=== PATIENT | male | born 1990 | race African-American/Black ===

== ENCOUNTER → 2016-12-31 | Outpatient (CLI) | payer OTHER ==
[2016-12-31] VITALS (8 sets, daily range): BP systolic 121–150; BP diastolic 62–92
[~2016-12-31] VITALS: Ht 167.6 cm; Wt 76.7 kg
[~2016-12-31] MED LIST: CALC0.25 PO; CLOP75TA PO; HEPARIN for IV BOLUS 10,000 UNIT/10 ML VIAL. ONE; LIDOCAINE 1%/EPI 1:100,000 20 ML VIAL. INJ ONE; LIDOCAINE 1%/EPI 1:100,000 20 ML VIAL. ONE; MIDAZOLAM HCL/PF 5 MG/5 ML VIAL. IV ONE; MIDAZOLAM HCL/PF 5 MG/5 ML VIAL. ONE; SEVE800T9 PO; VANCOMYCIN 1GM IVPB FOR OMNI 250 ML IRR ONE; VITA0.8T2 PO; fentaNYL PF VIAL 250 MCG/5 ML VIAL IV ONE; fentaNYL PF VIAL 250 MCG/5 ML VIAL ONE
[2016-12-31 09:54] LABS: BASO # 0.1 x10^3/uL (0.0-0.2); BASO % 1 % (0-3); EOS % 3 % (0-3); HEMATOCRIT 30.5 % (39.0-53.0); HEMOGLOBIN 10.4 g/dL (13.0-17.5); LYMPH # 1.8 x10^3/uL (1.0-4.8); LYMPH % 26 % (24-48); MEAN CORPUSCULAR HEMOGLOBIN 33 pg (25-35); MEAN CORPUSCULAR HGB CONC 34 g/dL (31-37); MEAN CORPUSCULAR VOLUME 97 fL (79-100); MONO % 9 % (0-9); NEUT % 61 % (31-73); PLATELET COUNT 246 x10^3/uL (140-400); RED BLOOD COUNT 3.15 x10^6/uL (4.30-5.70); RED CELL DISTRIBUTION WIDTH 14.3 % (11.5-14.5); WHITE BLOOD COUNT 6.9 x10^3/uL (4.0-11.0)
--- NOTE | 2016-12-31 10:59 | PDOC ---
MODERATE SEDATION ASSESSMENT RISKS/ALTERNATIVES Risks/Alternatives Risks and alternatives of this type of sedation and procedure discussed with: RISK/ALTERNATIVES: Patient H & P ON CHART H & P H & P on chart and reviewed for co-morbid conditions and appropriate labs. H&P ON CHART: Yes STATUS PREG STATUS ASSESSED: N/A MEDS/ALLERGIES REVIEWED Meds/Allergies Reviewed Medications and Allergies including time and route of recently administered narcotics and sedatives. MEDS/ALLERGIES REVIEWED: Yes ASA RATING ASA RATING: II AIRWAY ASSESSMENT Airway Assessment Airway patency, oral function limitations, presence of caps, crowns, dentures, partials, and ability to extend neck assessed. AIRWAY ASSESSMENT: Yes MALLAMPATI SCORE MALLAMPATI SCORE: I PRE-SEDATION ASSESSMENT PRE-SEDATION ASSESSMENT: Yes JAZMÍN STILL MD Dec 31, 2016 10:59
--- NOTE | 2016-12-31 11:04 | PDOC1 ---
History and Physical Date of Procedure Date of Admission 12/31/16 Procedure Procedure Sono/fluoro guided tunneled HDC insertion Indication Indication 26 YO male with ESRD and nonfunctioning AV access. Tunneled HDC insertion has been requested by Renal. Past Medical History Past Medical History See Nursing Pre Procedure PMH Past Surgical History Past Surgical History See Nursing Pre procedure PSH Current Medications Current Medications Current Medications Heparin Sodium (Porcine) (Heparin Sodium) 10,000 unit STK-MED ONCE .ROUTE ; Start 12/31/16 at 10:03; Stop 12/31/16 at 10:04; Status DC Lidocaine/ Epinephrine (Xylocaine 1%-Epi 1:100,000) 20 ml STK-MED ONCE .ROUTE ; Start 12/31/16 at 10:03; Stop 12/31/16 at 10:04; Status DC Heparin Sodium/ Sodium Chloride 500 ml @ As Directed STK-MED ONCE .ROUTE ; Start 12/31/16 at 10:03; Stop 12/31/16 at 10:04; Status DC Midazolam HCl (Versed) 5 mg STK-MED ONCE .ROUTE ; Start 12/31/16 at 10:16; Stop 12/31/16 at 10:17; Status DC Fentanyl Citrate (Fentanyl 5ml Vial) 250 mcg STK-MED ONCE .ROUTE ; Start at 10:16; Stop 12/31/16 at 10:17; Status DC Cefazolin Sodium 50 ml @ As Directed STK-MED ONCE IV ; Start 12/31/16 at 10:16; Stop 12/31/16 at 10:17; Status DC Heparin Sodium/ Sodium Chloride 1,000 unit 1X ONCE IART ; Start 12/31/16 at 10: 45; Stop 12/31/16 at 10:48; Status DC Midazolam HCl (Versed) 5 mg 1X ONCE IV ; Start 12/31/16 at 10:45; Stop at 10:48; Status DC Fentanyl Citrate (Fentanyl 5ml Vial) 150 mcg 1X ONCE IV ; Start 12/31/16 at 10: 45; Stop 12/31/16 at 10:48; Status DC Cefazolin Sodium 50 ml @ 100 mls/hr 1X ONCE IV ; Start 12/31/16 at 10:45; Stop 12/31/16 at 11:14 Vancomycin HCl 250 ml @ 250 mls/hr 1X ONCE IRR ; Start 12/31/16 at 10:45; Stop 12/31/16 at 11:44; Status Cancel Heparin Sodium (Porcine) (Heparin Sodium) 4,000 unit 1X ONCE INT CAT ; Start at 10:45; Stop 12/31/16 at 10:48; Status DC Lidocaine/ Epinephrine (Xylocaine 1%-Epi 1:100,000) 20 ml 1X ONCE INJ ; Start 12/31/16 at 10:45; Stop 12/31/16 at 10:48; Status DC Active Scripts Active Reported Clopidogrel (Clopidogrel Bisulfate) 75 Mg Tablet 1 Tab PO DAILY Renvela (Sevelamer Carbonate) 800 Mg Tablet 800 Mg PO TIDWMEALS Calcitriol 0.25 Mcg Capsule 1 Cap PO DAILY Dialyvite 800-Zinc 50 mg Tab (Vit B Complx C/Folic Acid/Zinc) 1 Each Tablet 1 Each PO DAILY Allergies Allergies: Coded Allergies: No Known Drug Allergies (Unverified , 12/31/16) Physical Exam Vital Signs Vital Signs Date Time Temp Pulse Resp B/P (MAP) Pulse Ox O2 Delivery O2 Flow Rate FiO2 12/31/16 10:54 84 17 99 Nasal Cannula 2.0 12/31/16 10:00 98.4 121/76 (91) 98.4 Lungs: Clear to auscultation Heart: Regular rate Psych/Mental Status: Mental status NL Vascular Thrombosed AV access Assessment Assessment 26 YO male with ESRD and nonfunctioning AV access. Problems: Plan Plan Sono/fluoro guided tunneled HDC insertion JAZMÍN STILL MD Dec 31, 2016 11:04
--- NOTE | 2016-12-31 11:07 | PDOC ---
Exam Offset Press Operator Apprentice Offset Press Operator Apprentice Sabino Crabber Crabber F Ndumbu Pre-Procedure Diagnosis Pre-Procedure Diagnosis 26 YO male with ESRD and nonfunctioning AV access Post-Procedure Diagnosis Post-Procedure Diagnosis Same Procedure Performed Procedure Performed Sono/fluoro guided tunneled HDC insertion Type of Anesthesia Type of Anesthesia Local + Mod sedation Estimated Blood Loss EBL: Minimal Drain/Tubes Drains/Tubes Right IJ 15.5F 24cm DuraMax tunneled HDC Condition of Patient Condition of Patient Stable. No apparent complication. Disposition Disposition Discharge from OBS post recovery, if no problems. F/u with Renal. OK to use tunneled HDC. Full report to follow. JAZMÍN STILL MD Dec 31, 2016 11:07
--- NOTE | 2017-01-01 10:53 | RAD ---
Ultrasound and fluoro guided placement of right IJ tunneled hemodialysis catheter Indication: 26-year-old male with end stage renal disease, and with thrombosed/nonfunctioning AV access. He needs hemodialysis. Tunneled dialysis catheter insertion has been requested by renal. Fluoro time: 1.4 minutes Kerma-Area Product: 3 Gycm2 Moderate sedation: 31 minutes moderate sedation was provided utilizing a total of 3 mg Versed and 150 mcg fentanyl, IV. The patient was appropriately monitored by a qualified independent observer throughout the time of moderate sedation. Antibiotic: A single dose of Ancef was administered within 1 hour of the procedure start time. Sterility: All elements of maximal sterile barrier technique, hand hygiene, skin preparation, and, if ultrasound was used, sterile ultrasound technique were followed. Consent: The procedure was explained in its entirety to the patient and/or the patient's designated help desk representative by a member of the treatment team. This included a discussion of risks and benefits and commonly accepted alternatives to the procedure, as well as expected consequences of no treatment at all. Discussion of risks included, but was not limited to, those that are most frequent and those that are rare, but possibly severe or life-threatening, as well as the possibility of unforeseen complications. Procedure: Informed consent was obtained from the patient. He was placed supine on the angiography table. Preliminary ultrasound examination of right neck revealed wide patency of right internal jugular vein, which was documented with a hard copy ultrasound image. Right neck and upper chest were then prepped and draped in the usual sterile fashion, utilizing all elements of maximal sterile barrier technique, as described above. Moderate sedation was provided with IV Versed and Fentanyl. 1 gram Ancef was given IV, prophylactically. Using aseptic technique and local anesthesia, a small skin incision was made lateral to right internal jugular vein, just above clavicle. Using aseptic technique, local anesthesia, and direct sterile ultrasound guidance, a micropuncture needle was successfully introduced into right internal jugular vein. The micropuncture needle was then exchanged over a microguidewire for a micropuncture sheath, through which an Amplatz wire was advanced into IVC, under fluoroscopic control. A second small skin incision was then made along upper anterior aspect of right chest. A subcutaneous tunnel was then fashioned between the right chest and supraclavicular incisions. A 15.5 F 24 cm Dura Max dialysis catheter was pulled through the subcutaneous tunnel from inferior to superior, utilizing the tunneling device provided. The right IJ venostomy tract was then sequentially dilated and the 15.5 Bengali dialysis catheter was easily advanced centrally through a 16 Bengali peel-away sheath, and was positioned with its tip at the level of upper right atrium utilizing fluoroscopic guidance. This catheter was demonstrated to flush and aspirate normally, was packed, and was secured at the right chest exit site utilizing 2-0 Prolene and sterile dressing. The small supraclavicular incision was closed with 4-0 Vicryl, Steri-Strips, and sterile dressing. Patient tolerated the procedure well without apparent complication. Satisfactory position of the dialysis catheter was confirmed with a single fluoroscopic spot image. Impression: Successful, uneventful ultrasound and fluoro guided placement of right IJ 15.5 F 24 cm Dura Max tunneled hemodialysis catheter, as described.
== END | disposition home or self-care (01) ==
LOC: INTRAD 09:13
PROVIDERS: ATTEND Internal Medicine Nephrology
DX: T82.868A Thrombosis due to vascular prosthetic devices, implants and grafts, initial encounter (principal); Y84.8 Other medical procedures as the cause of abnormal reaction of the patient, or of later complication, without mention of misadventure at the time of the procedure; N18.6 End stage renal disease; F17.200 Nicotine dependence, unspecified, uncomplicated; Z72.0 Tobacco use; Z90.49 Acquired absence of other specified parts of digestive tract
CPT/HCPCS: 36415; 36558; 76937; 77001; 85027; 85610; 99152; 99153; C1750; C1769; C1892; J0690; J2250; J3010; J3490

== ENCOUNTER 2017-02-02 21:28 | Inpatient (IN) | payer SELFPAY ==
[~2017-02-02] VITALS: Ht 167.6 cm; Wt 73.1 kg
[~2017-02-02 21:28] MED LIST changes: -HEPARIN for IV BOLUS 10,000 UNIT/10 ML VIAL. ONE; -LIDOCAINE 1%/EPI 1:100,000 20 ML VIAL. INJ ONE; -LIDOCAINE 1%/EPI 1:100,000 20 ML VIAL. ONE; -MIDAZOLAM HCL/PF 5 MG/5 ML VIAL. IV ONE; -MIDAZOLAM HCL/PF 5 MG/5 ML VIAL. ONE; -VANCOMYCIN 1GM IVPB FOR OMNI 250 ML IRR ONE; -fentaNYL PF VIAL 250 MCG/5 ML VIAL IV ONE; -fentaNYL PF VIAL 250 MCG/5 ML VIAL ONE
[2017-02-02 21:56] LABS: BASO # 0.1 x10^3/uL (0.0-0.2); BASO % 1 % (0-3); EOS % 3 % (0-3); HEMATOCRIT 38.9 % (39.0-53.0); HEMOGLOBIN 13.3 g/dL (13.0-17.5); LYMPH # 3.8 x10^3/uL (1.0-4.8); LYMPH % 36 % (24-48); MEAN CORPUSCULAR HEMOGLOBIN 34 pg (25-35); MEAN CORPUSCULAR HGB CONC 34 g/dL (31-37); MEAN CORPUSCULAR VOLUME 98 fL (79-100); MONO % 9 % (0-9); NEUT % 51 % (31-73); PLATELET COUNT 257 x10^3/uL (140-400); RED BLOOD COUNT 3.99 x10^6/uL (4.30-5.70); RED CELL DISTRIBUTION WIDTH 14.4 % (11.5-14.5); WHITE BLOOD COUNT 10.6 x10^3/uL (4.0-11.0)
[2017-02-02] MEDS: fentaNYL PF VIAL 100 MCG/2 ML VIAL IV PRN ×3 (21:58→23:31)
[2017-02-02 22:05] LABS: INR 1.1 (0.8-1.1); PROTHROMBIN TIME PATIENT 13.1 SEC (11.7-14.0)
--- NOTE | 2017-02-02 22:52 | PHYS DOC ---
Past Medical History Past Medical History: Renal Failure Past Surgical History: Cholecystectomy, Other Additional Past Surgical Histo: FISTULA L. ARM Alcohol Use: None Drug Use: None Adult General Chief Complaint Chief Complaint: DIALYSIS PROBLEM HPI HPI Patient is a 26 year old male dialysis patient who presents with a problem with his tunneled dialysis catheter. Patient does at home hemodialysis 5 days a week. He had a fistula in his left arm that is not functioning. About a month ago, he had a tunneled catheter placed in his right subclavian. He was using that without difficulty. 2 days ago, it became painful and yesterday it became swollen in this area. It hurts to take a deep breath or move his head or cough. He does not feel short of breath. Denies fever or chills. Denies cough of any significance. He did not do dialysis yesterday because it was painful, he didn't do today because he went to see his distribution a class lineman in the distribution a class lineman told him to come here for evaluation. Review of Systems Review of Systems Constitutional: Denies fever or chills [] Eyes: Denies change in visual acuity, redness, or eye pain [] HENT: Denies nasal congestion or sore throat [] Respiratory: Denies cough or shortness of breath [] Cardiovascular: No cardiac sounding chest pain GI: Denies abdominal pain, nausea, vomiting, bloody stools or diarrhea [] : Denies dysuria or hematuria [] Musculoskeletal: Denies back pain or joint pain [] Integument: Denies rash or skin lesions [] Neurologic: Denies headache, focal weakness or sensory changes [] Current Medications Current Medications Current Medications Medications (Trade) Dose Ordered Sig/[facility] Start Time Stop Time Status Last Admin Dose Admin Fentanyl Citrate (Fentanyl 2ml Vial) 50 mcg PRN Q15MIN PRN 02/02/17 22:00 02/03/17 21:59 02/02/17 23:31 50 MCG Allergies Allergies Allergies Coded Allergies Type Severity Reaction Last Updated Verified No Known Drug Allergies 01/20/17 No Physical Exam Physical Exam Constitutional: Well developed, well nourished, no acute distress, non-toxic appearance. Alert, ambulatory, mentating normally. HENT: Normocephalic, atraumatic, bilateral external ears normal, nose normal. [] Eyes: conjunctiva normal, no discharge. [] Neck: Normal range of motion, no stridor. [] Cardiovascular:Heart rate regular rhythm, no murmur Chest wall: A tunneled dialysis catheter is in place in the right upper chest wall. There is mild tenderness surrounding and superior to the catheter entry. No redness, no warmth, no crepitance. Lungs & Thorax: Bilateral breath sounds clear to auscultation [] Skin: Warm, dry, no erythema, no rash. [] Extremities: No tenderness, no cyanosis, no clubbing, ROM intact, no edema. Right arm is not appreciably swollen, not warm, not red, good pulses. Neurologic: Alert and oriented X 3, normal motor function, normal sensory function, no focal deficits noted. [] Current Patient Data Vital Signs Vital Signs Date Time Temp Pulse Resp B/P (MAP) Pulse Ox O2 Delivery O2 Flow Rate FiO2 02/02/17 23:31 20 02/02/17 21:45 98.2 76 166/109 (128) 97 Room Air 98.2 Lab Values Laboratory Tests Test 02/02/17 21:46 White Blood Count 10.6 x10^3/uL (4.0-11.0) Red Blood Count 3.99 x10^6/uL (4.30-5.70) L Hemoglobin 13.3 g/dL (13.0-17.5) Hematocrit 38.9 % (39.0-53.0) L Mean Corpuscular Volume 98 fL (79-100) Mean Corpuscular Hemoglobin 34 pg (25-35) Mean Corpuscular Hemoglobin Concent 34 g/dL (31-37) Red Cell Distribution Width 14.4 % (11.5-14.5) Platelet Count 257 x10^3/uL (140-400) Neutrophils (%) (Auto) 51 % (31-73) Lymphocytes (%) (Auto) 36 % (24-48) Monocytes (%) (Auto) 9 % (0-9) Eosinophils (%) (Auto) 3 % (0-3) Basophils (%) (Auto) 1 % (0-3) Neutrophils # (Auto) 5.4 x10^3uL (1.8-7.7) Lymphocytes # (Auto) 3.8 x10^3/uL (1.0-4.8) Monocytes # (Auto) 0.9 x10^3/uL (0.0-1.1) Eosinophils # (Auto) 0.3 x10^3/uL (0.0-0.7) Basophils # (Auto) 0.1 x10^3/uL (0.0-0.2) Prothrombin Time 13.1 SEC (11.7-14.0) Prothrombin Time INR 1.1 (0.8-1.1) PTT 33 SEC (24-38) Laboratory Tests 02/02/17 21:46 EKG EKG [] Radiology/Procedures Radiology/Procedures One view portable chest x-ray read by me. Heart size is normal. Lung hernandez are clear. The tunneled right subclavian catheter is noted. No pulmonary infiltrate , effusion, or pneumothorax. [] Course & Med Decision Making Course & Med Decision Making Pertinent Labs and Imaging studies reviewed. (See chart for details) 26-year-old male with a tunneled right subclavian dialysis catheter presents with concern for pain and swelling in the area. I discussed the case with radiologist , and he recommended ultrasound of the right upper extremity which will image the concerning area well he stated. I ordered that test. Vascular Doppler of the right upper extremity/subclavian area was done by the settlement technician. It is positive for clot in the right internal jugular and the right proximal subclavian. As the subclavian moves more distal out into the right axillary area, it is open without clot. I discussed the findings with Dr. Kingsley, on-call for nephrology. He recommended admitting the patient for IV heparin therapy. He prefers IV heparin over Lovenox. I discussed the case with Dr. Starks, hospital medicine. She will admit the patient. I wrote bridge orders. [] Dragon Disclaimer Dragon Disclaimer This electronic medical record was generated, in whole or in part, using a voice recognition dictation system. 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
[2017-02-02 23:44] LABS: ALBUMIN 3.2 g/dL (3.4-5.0); ALBUMIN/GLOBULIN RATIO 0.9 (1.0-1.7); CALCIUM 8.9 mg/dL (8.5-10.1); CREATININE 7.7 mg/dL (0.7-1.3); GFR 10.3; TOTAL BILIRUBIN 0.4 mg/dL (0.2-1.0); TOTAL PROTEIN 6.9 g/dL (6.4-8.2)
[2017-02-03] VITALS (7 sets, daily range): BP systolic 136–166; BP diastolic 80–111
[2017-02-03] MEDS ORDERED: HEPARIN for IV BOLUS 10,000 UNIT/10 ML VIAL. IV PRN ×2
[2017-02-03] MEDS ORDERED: WARFARIN 7.5 MG TABLET. PO ONE ×2 (00:15→16:00)
[2017-02-03] MEDS: HEPARIN 25,000UTS/500ML PREMIX 500 ML IV PRN ×2 (00:18→20:07)
--- NOTE | 2017-02-03 00:19 | RAD ---
Right upper Extremity Venous Doppler Ultrasound History: Right neck and shoulder pain for 2 days with right upper extremity swelling for one day, patient has an infraclavicular dialysis catheter. Comparison: None Procedure: Color flow, duplex, spectral analysis and 2D images are obtained with and without compression in the area of the deep and superficial venous structures of the upper , specifically the axillary, brachials, radial and ulnar deep veins and the superficial basilic and cephalic veins. Color Doppler and venous waveform analysis was also applied to the left jugular and subclavian vein. Findings: There is clot seen in the right internal jugular vein and the proximal right subclavian vein. The mid subclavian vein is not well visualized due to a port and bandage. The deep venous system right upper extremity is patent. Impression: Study is positive for deep venous thrombosis involving the proximal right subclavian vein and the right jugular vein. In this clinical presentation this is suspicious for thrombophlebitis. Electronically signed by: Ian Sterling III, MD (02/03/2017 12:16 AM) [facility]
[2017-02-03] MEDS ORDERED: HEPARIN for IV BOLUS 10,000 UNIT/10 ML VIAL. IV ONE (00:30)
[2017-02-03] MEDS: fentaNYL PF VIAL 100 MCG/2 ML VIAL IV PRN ×5 (03:20→20:11)
[2017-02-03] MEDS ORDERED: ANTI-COAG MONITOR BY PHARMACY. MC PRN (04:15)
[2017-02-03 08:12] LABS: CALCIUM 8.7 mg/dL (8.5-10.1); CREATININE 7.8 mg/dL (0.7-1.3); GFR 10.1; POTASSIUM 3.3 mmol/L (3.5-5.1)
--- NOTE | 2017-02-03 08:14 | RAD ---
Indication pain. A single view of the chest was obtained. Comparison is made to an examination 04/10/2013. The heart and pulmonary vessels appear normal. The lungs are clear of acute infiltrates. Significant pleural fluid is not seen. There is no pneumothorax. A right-sided dialysis catheter is noted. IMPRESSION: No acute or focal process seen in chest
--- NOTE | 2017-02-03 08:59 | PDOC2 ---
CONSULT Date of Consult Date of Consult DATE: 02/03/17 TIME: 08:57 Reason for Consult Reason for Consult: ESRD Referring Physician Referring Physician: Dr Starks Identification/Chief Complaint Chief Complaint neck pain Problems: Source Source: Patient History of Present Illness Reason for Visit: 26 yo AAM with ESRD for > 1yr currently doing home HD developed neck pain, found to have DVT via ER. He had permacath placment here ~ 1m ago. ESRD duet o "Kidney Dz" (IgAN) HypoKalemia - despite no HD since Tuesday due to pain Neck pain - with swelling on Rt, Presumably due to new onset DVT. N oissues with Cath working on last check. min dec ROM - some warmth Past Medical History GI: Other (cholecystectomy) Renal/: Chronic renal failure, Other (ESRD) Family History Family History: Other (-ve for renal dz) Social History ALCOHOL: none Drugs: None Lives: with Family Current Problem List Problem List Problems Medical Problems: (1) Chronic renal failure Status: Acute (2) Internal jugular vein thrombosis Status: Acute (3) Subclavian vein thrombosis Status: Acute Current Medications Current Medications Current Medications Fentanyl Citrate (Fentanyl 2ml Vial) 50 mcg PRN Q15MIN PRN IV PAIN GREATER THAN 3/10 Last administered on 02/02/17 23:31; Start 02/02/17 at 22:00; Stop at 05:00; Status DC Fentanyl Citrate (Fentanyl 2ml Vial) 50 mcg PRN Q2HR PRN IV SEVERE PAIN Last administered on 02/03/17 06:30; Start 02/03/17 at 00:00; Stop 02/03/17 at 23:59 Heparin Sodium/ Dextrose 500 ml @ 0 mls/hr CONT PRN IV SEE I/O RECORD Last administered on 02/03/17 00:18; Start 02/03/17 at 00:00 Heparin Sodium (Porcine) (Heparin Sodium) 2,300 unit PRN Q6HRS PRN IV FOR UFH LEVEL LESS THAN 0.2; Start 02/03/17 at 00:00 Heparin Sodium (Porcine) (Heparin Sodium) 1,150 unit PRN Q6HRS PRN IV FOR UFH LEVEL 0.2 - 0.29 Last administered on 02/03/17 08:16; Start 02/03/17 at 00:00 Warfarin Sodium (Coumadin Per Pharmacy) 1 each PRN DAILY PRN MC PER PROTOCOL Last administered on 02/03/17 05:50; Start 02/03/17 at 00:00 Warfarin Sodium (Coumadin) 7.5 mg 1X ONCE PO ; Start 02/03/17 at 00:15; Stop at 00:15; Status DC Heparin Sodium (Porcine) (Heparin Sodium) 6,150 unit 1X ONCE IV Last administered on 02/03/17 00:16; Start 02/03/17 at 00:30; Stop 02/03/17 at 00:31 ; Status DC Info (Anti-Coagulation Monitoring By Pharmacy) 1 each PRN DAILY PRN MC SEE COMMENTS Last administered on 02/03/17 05:53; Start 02/03/17 at 04:15 Active Scripts Active Reported Clopidogrel (Clopidogrel Bisulfate) 75 Mg Tablet 1 Tab PO DAILY Renvela (Sevelamer Carbonate) 800 Mg Tablet 800 Mg PO TIDWMEALS Calcitriol 0.25 Mcg Capsule 1 Cap PO DAILY Dialyvite 800-Zinc 50 mg Tab (Vit B Complx C/Folic Acid/Zinc) 1 Each Tablet 1 Each PO DAILY Allergies Allergies: Coded Allergies: No Known Drug Allergies (Unverified , 01/20/17) ROS Review of System GEN: no Fevers no Chills EYES: no new Visual Complaints ENT: no EN Drainage no Hearing deficiets CVS: no Orthopnea no CP RESP: no SOB no TORRES GI: no Nausea no Vomiting : no Dysuria no Urgency HEME: no easy bruising no Palp Ly Nodes NEURO no Focal Weakness no Sz PSYCH: no Suicidal Ideation no Depression SKIN: no Rashes ENDO: no Polyuria or Polydipsia no Hot/Cold Intolerance MU SK: no Arthraigia no Myalgia Physical Exam Physical Exam General Appearance: Awake Alert Oriented x 3 In no Distress Eyes: VIsion Unchanged Conjunctiva Normal EN: No EN Drainage Mucous Memb. moist Neck: no JVD min JVP Supple no Thyromegaly; swelling on Rt side of neck , min warm to touch, TTP CVS: S1 S2 ? Murmur No Gallop No Rub no Edema Resp: no Rales no Rhonchi no Acc. Muscle use GI: BAS +ve NO Bruit Non Tender Non Distended : no CVA tenderness; no Suprapubic Tenderness SKIN: no Rashes Breast Exam deferred Mu.Sk: Adequate ROM no Muscle Atrophy Heme: Unable to palpate Obvious LAD no palp Splenomegaly NEURO: Good Strength and Tone Cranial Nerves II - XII grossly intact Psych: no Depressed no Active hallucination Vital Signs Vital Signs Date Time Temp Pulse Resp B/P (MAP) Pulse Ox O2 Delivery O2 Flow Rate FiO2 02/03/17 07:00 99.0 67 20 140/80 (100) 96 Room Air 99.0 Assessment & Plan ESRD: Dialysis as below F 180 NR 2.5 Hrs 4 K 2.5 Ca 140 Na 30 HC03 Qb 350 + Qd 500+ Heparin on gtt Uf to dry weight as tolerated May give 25-50 gms of 25% Albumin if needed to maintain Hemodynamic stability Treatment plan reviewed and discussed with shipping point inspector [place] - anticipate correction with HD Bone & Mineral: follow phos and alter binder regimen as needed. Discussed Plan of Care and prognosis etc. at length with pt and Dr Yañez Labs Labs Laboratory Tests Test 02/02/17 21:46 02/02/17 23:00 02/03/17 06:10 White Blood Count 10.6 x10^3/uL (4.0-11.0) Red Blood Count 3.99 x10^6/uL (4.30-5.70) Hemoglobin 13.3 g/dL (13.0-17.5) Hematocrit 38.9 % (39.0-53.0) Mean Corpuscular Volume 98 fL (79-100) Mean Corpuscular Hemoglobin 34 pg (25-35) Mean Corpuscular Hemoglobin Concent 34 g/dL (31-37) Red Cell Distribution Width 14.4 % (11.5-14.5) Platelet Count 257 x10^3/uL (140-400) Neutrophils (%) (Auto) 51 % (31-73) Lymphocytes (%) (Auto) 36 % (24-48) Monocytes (%) (Auto) 9 % (0-9) Eosinophils (%) (Auto) 3 % (0-3) Basophils (%) (Auto) 1 % (0-3) Neutrophils # (Auto) 5.4 x10^3uL (1.8-7.7) Lymphocytes # (Auto) 3.8 x10^3/uL (1.0-4.8) Monocytes # (Auto) 0.9 x10^3/uL (0.0-1.1) Eosinophils # (Auto) 0.3 x10^3/uL (0.0-0.7) Basophils # (Auto) 0.1 x10^3/uL (0.0-0.2) Prothrombin Time 13.1 SEC (11.7-14.0) Prothromb Time International Ratio 1.1 (0.8-1.1) Activated Partial Thromboplast Time 33 SEC (24-38) Sodium Level 139 mmol/L (136-145) 141 mmol/L (136-145) Potassium Level 3.0 mmol/L (3.5-5.1) 3.3 mmol/L (3.5-5.1) Chloride Level 100 mmol/L (98-107) 102 mmol/L (98-107) Carbon Dioxide Level 29 mmol/L (21-32) 28 mmol/L (21-32) Anion Gap 10 (6-14) 11 (6-14) Blood Urea Nitrogen 34 mg/dL (8-26) 38 mg/dL (8-26) Creatinine 7.7 mg/dL (0.7-1.3) 7.8 mg/dL (0.7-1.3) Estimated GFR (Cockcroft-Gault) 10.3 10.1 BUN/Creatinine Ratio 4 (6-20) Glucose Level 86 mg/dL (70-99) 125 mg/dL (70-99) Calcium Level 8.9 mg/dL (8.5-10.1) 8.7 mg/dL (8.5-10.1) Total Bilirubin 0.4 mg/dL (0.2-1.0) Aspartate Amino Transf (AST/SGOT) 18 U/L (15-37) Alanine Aminotransferase (ALT/SGPT) 29 U/L (16-63) Alkaline Phosphatase 101 U/L (46-116) Total Protein 6.9 g/dL (6.4-8.2) Albumin 3.2 g/dL (3.4-5.0) Albumin/Globulin Ratio 0.9 (1.0-1.7) Heparin Anti-Xa Act, Unfractionated 0.29 IU/mL (0.30-0.70) Magnesium Level 2.0 mg/dL (1.8-2.4) Laboratory Tests Test 02/02/17 21:46 02/02/17 23:00 02/03/17 06:10 White Blood Count 10.6 x10^3/uL (4.0-11.0) Red Blood Count 3.99 x10^6/uL (4.30-5.70) Hemoglobin 13.3 g/dL (13.0-17.5) Hematocrit 38.9 % (39.0-53.0) Mean Corpuscular Volume 98 fL (79-100) Mean Corpuscular Hemoglobin 34 pg (25-35) Mean Corpuscular Hemoglobin Concent 34 g/dL (31-37) Red Cell Distribution Width 14.4 % (11.5-14.5) Platelet Count 257 x10^3/uL (140-400) Neutrophils (%) (Auto) 51 % (31-73) Lymphocytes (%) (Auto) 36 % (24-48) Monocytes (%) (Auto) 9 % (0-9) Eosinophils (%) (Auto) 3 % (0-3) Basophils (%) (Auto) 1 % (0-3) Neutrophils # (Auto) 5.4 x10^3uL (1.8-7.7) Lymphocytes # (Auto) 3.8 x10^3/uL (1.0-4.8) Monocytes # (Auto) 0.9 x10^3/uL (0.0-1.1) Eosinophils # (Auto) 0.3 x10^3/uL (0.0-0.7) Basophils # (Auto) 0.1 x10^3/uL (0.0-0.2) Prothrombin Time 13.1 SEC (11.7-14.0) Prothromb Time International Ratio 1.1 (0.8-1.1) Activated Partial Thromboplast Time 33 SEC (24-38) Sodium Level 139 mmol/L (136-145) 141 mmol/L (136-145) Potassium Level 3.0 mmol/L (3.5-5.1) 3.3 mmol/L (3.5-5.1) Chloride Level 100 mmol/L (98-107) 102 mmol/L (98-107) Carbon Dioxide Level 29 mmol/L (21-32) 28 mmol/L (21-32) Anion Gap 10 (6-14) 11 (6-14) Blood Urea Nitrogen 34 mg/dL (8-26) 38 mg/dL (8-26) Creatinine 7.7 mg/dL (0.7-1.3) 7.8 mg/dL (0.7-1.3) Estimated GFR (Cockcroft-Gault) 10.3 10.1 BUN/Creatinine Ratio 4 (6-20) Glucose Level 86 mg/dL (70-99) 125 mg/dL (70-99) Calcium Level 8.9 mg/dL (8.5-10.1) 8.7 mg/dL (8.5-10.1) Total Bilirubin 0.4 mg/dL (0.2-1.0) Aspartate Amino Transf (AST/SGOT) 18 U/L (15-37) Alanine Aminotransferase (ALT/SGPT) 29 U/L (16-63) Alkaline Phosphatase 101 U/L (46-116) Total Protein 6.9 g/dL (6.4-8.2) Albumin 3.2 g/dL (3.4-5.0) Albumin/Globulin Ratio 0.9 (1.0-1.7) Heparin Anti-Xa Act, Unfractionated 0.29 IU/mL (0.30-0.70) Magnesium Level 2.0 mg/dL (1.8-2.4) SHENA GOMEZ MD Feb 03, 2017 08:58
[2017-02-03] MEDS ORDERED: MAGNESIUM SULFATE 2GM 50 ML IV PRN (09:30)
--- NOTE | 2017-02-03 09:52 | PDOC1 ---
History and Physical Date of Admission Date of Admission DATE: 02/03/17 TIME: 09:00 Identification/Chief Complaint Chief Complaint Line-associated DVT Problems: Source Source: Patient History of Present Illness History of Present Illness Mr Osei is a 26 y/o man with ESRD, on home HD, who had required [facility] placement after his L UE AV fistula thrombosed last month. HD had been going well until a bout 4 days ago, when he developed progressive neck and shoulder pain and swelling in the area in past 1-2 days. he has difficulties with movement in his shoulder and is therfore unable to do yony HD himself. In the ER, he was found with DVT and admitted to the hospital for IV heparin. Past Medical History GI: Other (cholecystectomy) Renal/: Chronic renal failure, Other (ESRD) Past Surgical History Past Surgical History L UE AV fistula Family History Family History negative for kidney disease Social History Smoke: <1 pack per day ALCOHOL: none Drugs: None Current Medications Current Medications Active Scripts Active Reported Clopidogrel (Clopidogrel Bisulfate) 75 Mg Tablet 1 Tab PO DAILY Renvela (Sevelamer Carbonate) 800 Mg Tablet 800 Mg PO TIDWMEALS Calcitriol 0.25 Mcg Capsule 1 Cap PO DAILY Dialyvite 800-Zinc 50 mg Tab (Vit B Complx C/Folic Acid/Zinc) 1 Each Tablet 1 Each PO DAILY Allergies Allergies: Coded Allergies: No Known Drug Allergies (Unverified , 01/20/17) ROS Review of System positive as per HPI. rest of organ system reviewed and negative Physical Exam General: Alert, Oriented X3, Cooperative, mild distress HEENT: Atraumatic, EOMI Lungs: Clear to auscultation Heart: RRR Abdomen: Normal bowel sounds, Soft Extremities: No clubbing, No edema Skin: No rashes Neuro: Normal speech Psych/Mental Status: Mental status NL Vitals Vitals Vital Signs Date Time Temp Pulse Resp B/P (MAP) Pulse Ox O2 Delivery O2 Flow Rate FiO2 02/03/17 08:00 Room Air 02/03/17 07:00 99.0 67 20 140/80 (100) 96 99.0 Labs Labs Laboratory Tests Test 02/02/17 21:46 02/02/17 23:00 02/03/17 06:10 White Blood Count 10.6 x10^3/uL (4.0-11.0) Red Blood Count 3.99 x10^6/uL (4.30-5.70) Hemoglobin 13.3 g/dL (13.0-17.5) Hematocrit 38.9 % (39.0-53.0) Mean Corpuscular Volume 98 fL (79-100) Mean Corpuscular Hemoglobin 34 pg (25-35) Mean Corpuscular Hemoglobin Concent 34 g/dL (31-37) Red Cell Distribution Width 14.4 % (11.5-14.5) Platelet Count 257 x10^3/uL (140-400) Neutrophils (%) (Auto) 51 % (31-73) Lymphocytes (%) (Auto) 36 % (24-48) Monocytes (%) (Auto) 9 % (0-9) Eosinophils (%) (Auto) 3 % (0-3) Basophils (%) (Auto) 1 % (0-3) Neutrophils # (Auto) 5.4 x10^3uL (1.8-7.7) Lymphocytes # (Auto) 3.8 x10^3/uL (1.0-4.8) Monocytes # (Auto) 0.9 x10^3/uL (0.0-1.1) Eosinophils # (Auto) 0.3 x10^3/uL (0.0-0.7) Basophils # (Auto) 0.1 x10^3/uL (0.0-0.2) Prothrombin Time 13.1 SEC (11.7-14.0) Prothromb Time International Ratio 1.1 (0.8-1.1) Activated Partial Thromboplast Time 33 SEC (24-38) Sodium Level 139 mmol/L (136-145) 141 mmol/L (136-145) Potassium Level 3.0 mmol/L (3.5-5.1) 3.3 mmol/L (3.5-5.1) Chloride Level 100 mmol/L (98-107) 102 mmol/L (98-107) Carbon Dioxide Level 29 mmol/L (21-32) 28 mmol/L (21-32) Anion Gap 10 (6-14) 11 (6-14) Blood Urea Nitrogen 34 mg/dL (8-26) 38 mg/dL (8-26) Creatinine 7.7 mg/dL (0.7-1.3) 7.8 mg/dL (0.7-1.3) Estimated GFR (Cockcroft-Gault) 10.3 10.1 BUN/Creatinine Ratio 4 (6-20) Glucose Level 86 mg/dL (70-99) 125 mg/dL (70-99) Calcium Level 8.9 mg/dL (8.5-10.1) 8.7 mg/dL (8.5-10.1) Total Bilirubin 0.4 mg/dL (0.2-1.0) Aspartate Amino Transf (AST/SGOT) 18 U/L (15-37) Alanine Aminotransferase (ALT/SGPT) 29 U/L (16-63) Alkaline Phosphatase 101 U/L (46-116) Total Protein 6.9 g/dL (6.4-8.2) Albumin 3.2 g/dL (3.4-5.0) Albumin/Globulin Ratio 0.9 (1.0-1.7) Heparin Anti-Xa Act, Unfractionated 0.29 IU/mL (0.30-0.70) Magnesium Level 2.0 mg/dL (1.8-2.4) Laboratory Tests Test 02/02/17 21:46 02/02/17 23:00 02/03/17 06:10 White Blood Count 10.6 x10^3/uL (4.0-11.0) Red Blood Count 3.99 x10^6/uL (4.30-5.70) Hemoglobin 13.3 g/dL (13.0-17.5) Hematocrit 38.9 % (39.0-53.0) Mean Corpuscular Volume 98 fL (79-100) Mean Corpuscular Hemoglobin 34 pg (25-35) Mean Corpuscular Hemoglobin Concent 34 g/dL (31-37) Red Cell Distribution Width 14.4 % (11.5-14.5) Platelet Count 257 x10^3/uL (140-400) Neutrophils (%) (Auto) 51 % (31-73) Lymphocytes (%) (Auto) 36 % (24-48) Monocytes (%) (Auto) 9 % (0-9) Eosinophils (%) (Auto) 3 % (0-3) Basophils (%) (Auto) 1 % (0-3) Neutrophils # (Auto) 5.4 x10^3uL (1.8-7.7) Lymphocytes # (Auto) 3.8 x10^3/uL (1.0-4.8) Monocytes # (Auto) 0.9 x10^3/uL (0.0-1.1) Eosinophils # (Auto) 0.3 x10^3/uL (0.0-0.7) Basophils # (Auto) 0.1 x10^3/uL (0.0-0.2) Prothrombin Time 13.1 SEC (11.7-14.0) Prothromb Time International Ratio 1.1 (0.8-1.1) Activated Partial Thromboplast Time 33 SEC (24-38) Sodium Level 139 mmol/L (136-145) 141 mmol/L (136-145) Potassium Level 3.0 mmol/L (3.5-5.1) 3.3 mmol/L (3.5-5.1) Chloride Level 100 mmol/L (98-107) 102 mmol/L (98-107) Carbon Dioxide Level 29 mmol/L (21-32) 28 mmol/L (21-32) Anion Gap 10 (6-14) 11 (6-14) Blood Urea Nitrogen 34 mg/dL (8-26) 38 mg/dL (8-26) Creatinine 7.7 mg/dL (0.7-1.3) 7.8 mg/dL (0.7-1.3) Estimated GFR (Cockcroft-Gault) 10.3 10.1 BUN/Creatinine Ratio 4 (6-20) Glucose Level 86 mg/dL (70-99) 125 mg/dL (70-99) Calcium Level 8.9 mg/dL (8.5-10.1) 8.7 mg/dL (8.5-10.1) Total Bilirubin 0.4 mg/dL (0.2-1.0) Aspartate Amino Transf (AST/SGOT) 18 U/L (15-37) Alanine Aminotransferase (ALT/SGPT) 29 U/L (16-63) Alkaline Phosphatase 101 U/L (46-116) Total Protein 6.9 g/dL (6.4-8.2) Albumin 3.2 g/dL (3.4-5.0) Albumin/Globulin Ratio 0.9 (1.0-1.7) Heparin Anti-Xa Act, Unfractionated 0.29 IU/mL (0.30-0.70) Magnesium Level 2.0 mg/dL (1.8-2.4) VTE Prophylaxis Ordered VTE Prophylaxis Devices: Yes VTE Pharmacological Prophylaxi: Yes JUAN CARLOS SANCHEZ MD Feb 03, 2017 09:52
[2017-02-04] MEDS: oxyCODONE/APAP 10/325 1 TAB TABLET PO PRN ×4 (01:00→23:27)
[2017-02-04 03:15] VITALS: BP 142/82
[2017-02-04 05:07] LABS: HEMATOCRIT 36.6 % (39.0-53.0); HEMOGLOBIN 12.2 g/dL (13.0-17.5); RED BLOOD COUNT 3.8 x10^6/uL (4.30-5.70); WHITE BLOOD COUNT 8.2 x10^3/uL (4.0-11.0)
[2017-02-04 05:35] LABS: ALBUMIN 3.1 g/dL (3.4-5.0); CALCIUM 9.6 mg/dL (8.5-10.1); CREATININE 7.7 mg/dL (0.7-1.3); GFR 10.3; PHOSPHORUS 5.3 mg/dL (2.6-4.7); POTASSIUM 3.4 mmol/L (3.5-5.1)
[2017-02-04 07:16] VITALS: BP 145/94
[2017-02-04 09:50] LABS: INR 1.2 (0.8-1.1); PROTHROMBIN TIME PATIENT 14.4 SEC (11.7-14.0)
[2017-02-04 11:06] VITALS: BP 144/90
--- NOTE | 2017-02-04 13:28 | PDOC ---
PROGRESS NOTES Chief Complaint Chief Complaint Line associated DVT ASSESSMENT AND PLAN: 1. DVT: on IV heparin, coumadin conversion. vascular surgery: no plans for intervention with current clot. will need new fistula down the road 2. Pain control: adequate 3. ESRD: to HD today History of Present Illness History of Present Illness very upset about having to stay in the hospital; s shyam she cannot afford it ( no insurance). shoulder pain better, but swolled Vitals Vitals Vital Signs Date Time Temp Pulse Resp B/P (MAP) Pulse Ox O2 Delivery O2 Flow Rate FiO2 02/04/17 11:38 18 97 Room Air 02/04/17 11:06 98.8 75 144/90 (108) 98.8 Physical Exam Physical Exam R neck supraclav space edema General: Alert, Oriented X3, Cooperative, mild distress Heart: Regular rate Lungs: Clear Abdomen: Normal bowel sounds, Soft Extremities: No clubbing, No edema Skin: No rashes Labs LABS Laboratory Tests Test 02/03/17 18:45 02/04/17 04:42 02/04/17 09:10 Heparin Anti-Xa Act, Unfractionated 0.40 IU/mL (0.30-0.70) White Blood Count 8.2 x10^3/uL (4.0-11.0) Red Blood Count 3.80 x10^6/uL (4.30-5.70) Hemoglobin 12.2 g/dL (13.0-17.5) Hematocrit 36.6 % (39.0-53.0) Mean Corpuscular Volume 97 fL (79-100) Mean Corpuscular Hemoglobin 32 pg (25-35) Mean Corpuscular Hemoglobin Concent 33 g/dL (31-37) Red Cell Distribution Width 14.0 % (11.5-14.5) Platelet Count 254 x10^3/uL (140-400) Sodium Level 138 mmol/L (136-145) Potassium Level 3.4 mmol/L (3.5-5.1) Chloride Level 99 mmol/L (98-107) Carbon Dioxide Level 25 mmol/L (21-32) Anion Gap 14 (6-14) Blood Urea Nitrogen 40 mg/dL (8-26) Creatinine 7.7 mg/dL (0.7-1.3) Estimated GFR (Cockcroft-Gault) 10.3 Glucose Level 100 mg/dL (70-99) Calcium Level 9.6 mg/dL (8.5-10.1) Phosphorus Level 5.3 mg/dL (2.6-4.7) Magnesium Level 1.8 mg/dL (1.8-2.4) Albumin 3.1 g/dL (3.4-5.0) Prothrombin Time 14.4 SEC (11.7-14.0) Prothromb Time International Ratio 1.2 (0.8-1.1) JUAN CARLOS SANCHEZ MD Feb 04, 2017 13:28
[2017-02-04] MEDS: HEPARIN 25,000UTS/500ML PREMIX 500 ML IV PRN (14:12)
[2017-02-04 15:04] VITALS: BP 144/77
--- NOTE | 2017-02-04 15:07 | PDOC ---
Dialysis Progress Note Dialysis Note Dialysis Note Seen on Hemodialysis, tolerating treatment Well so far Vitals on Hemodialysis: 154/89 58 General Appearance: Awake: Alert Oriented x 3 Neck: No JVD or JVP Chest: CTA Che[place] Heart: S1 S2 Abdomen - Soft NTND Extremities - No Edema ESRD: Dialysis as below F 180 NR 3.0 Hrs 4 K 2.5 Ca 140 Na 35 HC03 Qb 350 + Qd 500+ Heparin 0 Units Uf 1-2 Kgs or to dry weight as tolerated May give 25-50 gms of 25% Albumin if needed to maintain Hemodynamic stability Treatment plan reviewed and discussed with coupon redemption clerk Vitals Vital Signs Vital Signs Date Time Temp Pulse Resp B/P (MAP) Pulse Ox O2 Delivery O2 Flow Rate FiO2 02/04/17 12:38 16 97 Room Air 02/04/17 11:06 98.8 75 144/90 (108) 98.8 Labs Last Labs Laboratory Tests Test 02/02/17 21:46 02/02/17 23:00 02/03/17 06:10 02/03/17 13:01 White Blood Count 10.6 x10^3/uL (4.0-11.0) Red Blood Count 3.99 x10^6/uL (4.30-5.70) Hemoglobin 13.3 g/dL (13.0-17.5) Hematocrit 38.9 % (39.0-53.0) Mean Corpuscular Volume 98 fL (79-100) Mean Corpuscular Hemoglobin 34 pg (25-35) Mean Corpuscular Hemoglobin Concent 34 g/dL (31-37) Red Cell Distribution Width 14.4 % (11.5-14.5) Platelet Count 257 x10^3/uL (140-400) Neutrophils (%) (Auto) 51 % (31-73) Lymphocytes (%) (Auto) 36 % (24-48) Monocytes (%) (Auto) 9 % (0-9) Eosinophils (%) (Auto) 3 % (0-3) Basophils (%) (Auto) 1 % (0-3) Neutrophils # (Auto) 5.4 x10^3uL (1.8-7.7) Lymphocytes # (Auto) 3.8 x10^3/uL (1.0-4.8) Monocytes # (Auto) 0.9 x10^3/uL (0.0-1.1) Eosinophils # (Auto) 0.3 x10^3/uL (0.0-0.7) Basophils # (Auto) 0.1 x10^3/uL (0.0-0.2) Prothrombin Time 13.1 SEC (11.7-14.0) Prothromb Time International Ratio 1.1 (0.8-1.1) Activated Partial Thromboplast Time 33 SEC (24-38) Sodium Level 139 mmol/L (136-145) 141 mmol/L (136-145) Potassium Level 3.0 mmol/L (3.5-5.1) 3.3 mmol/L (3.5-5.1) Chloride Level 100 mmol/L (98-107) 102 mmol/L (98-107) Carbon Dioxide Level 29 mmol/L (21-32) 28 mmol/L (21-32) Anion Gap 10 (6-14) 11 (6-14) Blood Urea Nitrogen 34 mg/dL (8-26) 38 mg/dL (8-26) Creatinine 7.7 mg/dL (0.7-1.3) 7.8 mg/dL (0.7-1.3) Estimated GFR (Cockcroft-Gault) 10.3 10.1 BUN/Creatinine Ratio 4 (6-20) Glucose Level 86 mg/dL (70-99) 125 mg/dL (70-99) Calcium Level 8.9 mg/dL (8.5-10.1) 8.7 mg/dL (8.5-10.1) Total Bilirubin 0.4 mg/dL (0.2-1.0) Aspartate Amino Transf (AST/SGOT) 18 U/L (15-37) Alanine Aminotransferase (ALT/SGPT) 29 U/L (16-63) Alkaline Phosphatase 101 U/L (46-116) Total Protein 6.9 g/dL (6.4-8.2) Albumin 3.2 g/dL (3.4-5.0) Albumin/Globulin Ratio 0.9 (1.0-1.7) Heparin Anti-Xa Act, Unfractionated 0.29 IU/mL (0.30-0.70) 0.38 IU/mL (0.30-0.70) Magnesium Level 2.0 mg/dL (1.8-2.4) Test 02/03/17 18:45 02/04/17 04:42 02/04/17 09:10 Heparin Anti-Xa Act, Unfractionated 0.40 IU/mL (0.30-0.70) White Blood Count 8.2 x10^3/uL (4.0-11.0) Red Blood Count 3.80 x10^6/uL (4.30-5.70) Hemoglobin 12.2 g/dL (13.0-17.5) Hematocrit 36.6 % (39.0-53.0) Mean Corpuscular Volume 97 fL (79-100) Mean Corpuscular Hemoglobin 32 pg (25-35) Mean Corpuscular Hemoglobin Concent 33 g/dL (31-37) Red Cell Distribution Width 14.0 % (11.5-14.5) Platelet Count 254 x10^3/uL (140-400) Sodium Level 138 mmol/L (136-145) Potassium Level 3.4 mmol/L (3.5-5.1) Chloride Level 99 mmol/L (98-107) Carbon Dioxide Level 25 mmol/L (21-32) Anion Gap 14 (6-14) Blood Urea Nitrogen 40 mg/dL (8-26) Creatinine 7.7 mg/dL (0.7-1.3) Estimated GFR (Cockcroft-Gault) 10.3 Glucose Level 100 mg/dL (70-99) Calcium Level 9.6 mg/dL (8.5-10.1) Phosphorus Level 5.3 mg/dL (2.6-4.7) Magnesium Level 1.8 mg/dL (1.8-2.4) Albumin 3.1 g/dL (3.4-5.0) Prothrombin Time 14.4 SEC (11.7-14.0) Prothromb Time International Ratio 1.2 (0.8-1.1) Laboratory Tests Test 02/03/17 18:45 02/04/17 04:42 02/04/17 09:10 Heparin Anti-Xa Act, Unfractionated 0.40 IU/mL (0.30-0.70) White Blood Count 8.2 x10^3/uL (4.0-11.0) Red Blood Count 3.80 x10^6/uL (4.30-5.70) Hemoglobin 12.2 g/dL (13.0-17.5) Hematocrit 36.6 % (39.0-53.0) Mean Corpuscular Volume 97 fL (79-100) Mean Corpuscular Hemoglobin 32 pg (25-35) Mean Corpuscular Hemoglobin Concent 33 g/dL (31-37) Red Cell Distribution Width 14.0 % (11.5-14.5) Platelet Count 254 x10^3/uL (140-400) Sodium Level 138 mmol/L (136-145) Potassium Level 3.4 mmol/L (3.5-5.1) Chloride Level 99 mmol/L (98-107) Carbon Dioxide Level 25 mmol/L (21-32) Anion Gap 14 (6-14) Blood Urea Nitrogen 40 mg/dL (8-26) Creatinine 7.7 mg/dL (0.7-1.3) Estimated GFR (Cockcroft-Gault) 10.3 Glucose Level 100 mg/dL (70-99) Calcium Level 9.6 mg/dL (8.5-10.1) Phosphorus Level 5.3 mg/dL (2.6-4.7) Magnesium Level 1.8 mg/dL (1.8-2.4) Albumin 3.1 g/dL (3.4-5.0) Prothrombin Time 14.4 SEC (11.7-14.0) Prothromb Time International Ratio 1.2 (0.8-1.1) Assessment Assessment Problems Medical Problems: (1) Chronic renal failure Status: Acute (2) Internal jugular vein thrombosis Status: Acute (3) Subclavian vein thrombosis Status: Acute Problems: Plan Plan of Care Problems Medical Problems: (1) Chronic renal failure Status: Acute (2) Internal jugular vein thrombosis Status: Acute (3) Subclavian vein thrombosis Status: Acute SHENA GOMEZ MD Feb 04, 2017 15:07
[2017-02-04] MEDS ORDERED: IV NORMAL SALINE 1000ML BAG 1,000 ML IV PRN (15:21)
[2017-02-04] MEDS ORDERED: ALBUMIN HUMAN 25% 200 ML IV PRN (15:30)
[2017-02-04] MEDS ORDERED: DIALYSIS PATIENT. MC PRN (15:30)
[2017-02-04] MEDS ORDERED: diphenhydrAMINE 50 MG/ML VIAL IV PRN ×2 (15:30)
--- NOTE | 2017-02-04 15:39 | CONS ---
DATE OF CONSULTATION: 02/04/2017 REASON FOR CONSULTATION: Right arm swelling, right neck swelling, right internal jugular and subclavian vein thrombosis. Vascular consultation was requested for this patient regarding possible initiation of thrombolysis. The patient has had a previous left upper arm AV graft and possibly a left upper arm AV fistula. This was done at [facility]. His graft thrombosed about a month ago and has been using his dialysis catheter since that time. He was seen in the Emergency Room here with left shoulder and proximal arm swelling and admitted to the hospital after duplex imaging study showed a right subclavian vein and right internal jugular vein thrombosis. The patient's renal failure is on the basis of IgA nephropathy. He has not on the transplant list yet. He has not had any right-sided procedures performed ____ right internal jugular dialysis catheter. Examination in bed, no acute distress. Right IJ catheter in with the right infraclavicular access site. There is some swelling, minimal in nature in the right shoulder area extending into the right upper arm and right neck. No tenderness, no erythema. His exam also shows a thrombosed upper arm AV graft and evidence of a transposed brachiobasilic fistula. Compression of the forearm vessels on the left shows marginally adequate cephalic vein in the forearm. The cephalic vein is visible at the antecubital fossa, but cannot trace it into the upper arm. He has a palpable radial and brachial pulse on the right. He has an IV in his right arm, cannot appreciate superficial veins, but he does have an excellent radial pulse. IMPRESSION: The patient would best be treated with new access, and we can get the catheter out. I would not recommend any lytic therapy for the indwelling catheter at this time, but addressing the occlusive disease after the catheter has been removed maybe appropriate. For now, I agree with continuing heparin anticoagulation and perhaps even transition him to Coumadin anticoagulation. PLAN: I will talk to my office with regard to this patient. He has been seen by . ____ previously scheduled for an AV graft on 02/24/2016, hopefully this can be moved up to facilitate getting his catheter out. Thank you for this consult. ANTONIETA ALVAREZ MD DR: ION/maddy JOB#: [id number] / [id number]
[2017-02-04] MEDS ORDERED: WARFARIN 6 MG TABLET. PO ONE (16:00)
[2017-02-04 19:10] VITALS: BP 150/95
[2017-02-04 23:10] VITALS: BP 123/78
== END 2017-02-05 00:41 | disposition left against medical advice (07) | DRG 314 ==
LOC: ER 21:28 → 6 SOUTH 23:45
PROVIDERS: ADMIT Internal Medicine; ATTEND Internal Medicine
PROC: 5A1D00Z (ICD-10-PCS; principal; 2017-02-04)
DX: T82.868A Thrombosis due to vascular prosthetic devices, implants and grafts, initial encounter (principal); N18.6 End stage renal disease; I82.621 Acute embolism and thrombosis of deep veins of right upper extremity; I82.C11 Acute embolism and thrombosis of right internal jugular vein; Z53.21 Procedure and treatment not carried out due to patient leaving prior to being seen by health care provider; E87.6 Hypokalemia; M54.2 Cervicalgia; Y84.8 Other medical procedures as the cause of abnormal reaction of the patient, or of later complication, without mention of misadventure at the time of the procedure; F17.210 Nicotine dependence, cigarettes, uncomplicated; Z90.49 Acquired absence of other specified parts of digestive tract; Z99.2 Dependence on renal dialysis
CPT/HCPCS: 36415; 71010; 80048; 80053; 80069; 83735; 85027; 85520; 85610; 85730; 93971; 96374; 96375; J1644; J3010; 99285-25; A6539

== ENCOUNTER 2017-04-29 07:05 | Outpatient (CLI) | payer OTHER ==
[~2017-04-29] VITALS: Ht 167.6 cm; Wt 75.7 kg
[2017-04-29 07:49] LABS: BASO % 0 % (0-3); EOS % 3 % (0-3); HEMATOCRIT 36.7 % (39.0-53.0); HEMOGLOBIN 12.7 g/dL (13.0-17.5); LYMPH # 2.4 x10^3/uL (1.0-4.8); LYMPH % 36 % (24-48); MEAN CORPUSCULAR HEMOGLOBIN 33 pg (25-35); MEAN CORPUSCULAR HGB CONC 35 g/dL (31-37); MEAN CORPUSCULAR VOLUME 96 fL (79-100); MONO % 6 % (0-9); NEUT % 54 % (31-73); PLATELET COUNT 226 x10^3/uL (140-400); RED BLOOD COUNT 3.82 x10^6/uL (4.30-5.70); RED CELL DISTRIBUTION WIDTH 15.1 % (11.5-14.5); WHITE BLOOD COUNT 6.6 x10^3/uL (4.0-11.0)
[2017-04-29 08:00] VITALS: BP 128/80
[2017-04-29 08:00] LABS: INR 0.9 (0.8-1.1); PROTHROMBIN TIME PATIENT 11.9 SEC (11.7-14.0)
[2017-04-29] MEDS ORDERED: LIDOCAINE 1%/EPI 1:100,000 20 ML VIAL. ONE (08:00)
[2017-04-29] MEDS ORDERED: LIDOCAINE 1% / SOD BICARB 8.4% 20 ML VIAL. IJ ONE (08:45)
[2017-04-29 08:54] VITALS: BP 144/77
[2017-04-29] MEDS ORDERED: [UNRECOGNIZED DRUG - OTHER] PO (09:24)
[2017-04-29] MEDS ORDERED: WARF5TAB7 PO (09:24)
--- NOTE | 2017-04-29 13:19 | RAD ---
Fluoroscopically assisted removal of a right internal jugular tunnel dialysis catheter 04/29/2017 Indication: Catheter no longer required secondary to alternative dialysis access. Discussion: The risks and benefits of the procedure were discussed the patient. Informed consent was obtained. The previously existing catheter in right upper chest were prepped and draped using maximum sterile barrier technique. 1% lidocaine without epinephrine was administered to the overlying skin and subcutaneous tissues. Using a collimation of blunt dissection and traction of the pre-existing catheter was removed and manual pressure held to achieve hemostasis. Complete catheter removal was confirmed with fluoroscopy and by examination of the catheter. No immediate complications were identified. Fluoroscopy time 0.1 minutes Dose area product 0.1 no centimeters squared Impression: Successful removal of right internal jugular tunnel dialysis catheter
== END 2017-04-29 09:45 | disposition home or self-care (01) ==
LOC: INTRAD 07:05
PROVIDERS: ATTEND Internal Medicine Nephrology
DX: I12.0 Hypertensive chronic kidney disease with stage 5 chronic kidney disease or end stage renal disease (principal); N18.6 End stage renal disease; F17.200 Nicotine dependence, unspecified, uncomplicated; Z99.2 Dependence on renal dialysis; Z90.49 Acquired absence of other specified parts of digestive tract; Z72.0 Tobacco use
CPT/HCPCS: 36415; 36589; 77001; 85025; 85610